=== PATIENT | male | born 1970 | race Caucasian/White ===

== ENCOUNTER → 2021-08-11 | Emergency (ER) | payer OTHER ==
[~2021-08-11] VITALS: Ht 182.9 cm; Wt 149.7 kg
[~2021-08-11] MED LIST: PREDNISONE20 M1; PROAIR HFA8.5 GM; SYMBICORT 16010.2 GM
== END | disposition left against medical advice (07) ==
LOC: ER 13:33
DX: Z53.21 Procedure and treatment not carried out due to patient leaving prior to being seen by health care provider (principal)